=== PATIENT | male | born 1960 | race Asian ===

== ENCOUNTER 2016-06-27 10:15 | Outpatient (CLI) | payer OTHER ==
[2016-06-27 10:41] LABS: POTASSIUM 3.8 mmol/L (3.6-5.2); SODIUM 135 mmol/L (136-145)
[2016-06-27 11:13] LABS: PLATELET COUNT 269 K/uL (142-355)
== END 2016-06-27 19:06 | disposition home or self-care (01) ==
LOC: LABW 10:15
PROVIDERS: Physician Assistant Medical
DX: I10 Essential (primary) hypertension (principal); Z79.01 Long term (current) use of anticoagulants; Z51.81 Encounter for therapeutic drug level monitoring
CPT/HCPCS: 36415; 80053; 80061; 82248; 85027

== ENCOUNTER 2017-04-27 08:52 | Emergency (ER) | payer OTHER ==
[~2017-04-27] VITALS: Ht 162.6 cm; Wt 107.0 kg
[2017-04-27 08:55] VITALS: TEMP 98.2
[2017-04-27 09:29] LABS: PLATELET COUNT 341 K/uL (142-355)
[2017-04-27 11:27] LABS: POTASSIUM 4.4 mmol/L (3.6-5.2)
[2017-04-27 13:36] VITALS: BP 178/94
== END 2017-04-27 13:42 | disposition home or self-care (01) ==
LOC: ED 08:52
DX: E11.65 Type 2 diabetes mellitus with hyperglycemia (principal); R53.1 Weakness
CPT/HCPCS: 36415; 80053; 81000; 83735; 85027; 93005; 99283

== ENCOUNTER 2018-07-04 06:31 | Emergency (ER) | payer OTHER ==
[~2018-07-04] VITALS: Ht 162.6 cm; Wt 107.0 kg
[2018-07-04 06:50] VITALS: TEMP 97.8
[2018-07-04 08:07] LABS: PLATELET COUNT 406 K/uL (142-355)
[2018-07-04 08:12] LABS: POTASSIUM 4.5 mmol/L (3.6-5.2)
[2018-07-04 09:00] VITALS: BP 121/72
== END 2018-07-04 09:45 | disposition home or self-care (01) ==
LOC: ED 06:31
PROVIDERS: Internal Medicine
DX: T18.0XXA Foreign body in mouth, initial encounter (principal); X58.XXXA Exposure to other specified factors, initial encounter; Y93.89 Activity, other specified; Y92.018 Other place in single-family (private) house as the place of occurrence of the external cause
CPT/HCPCS: 36415; 80053; 85027; 99283